=== PATIENT | female | born 1950 | race African-American/Black ===

== ENCOUNTER 2018-08-08 14:57 | Emergency (ER) | payer MEDICARE | END 2018-08-08 16:20 | disposition home or self-care (01) | LOC: ERS 14:57 | DX: S39.012A Strain of muscle, fascia and tendon of lower back, initial encounter (principal); E78.5 Hyperlipidemia, unspecified; Z79.899 Other long term (current) drug therapy; I10 Essential (primary) hypertension; Z87.891 Personal history of nicotine dependence; X50.1XXA Overexertion from prolonged static or awkward postures, initial encounter | CPT/HCPCS: 99283 ==

== ENCOUNTER 2020-09-05 06:51 | Outpatient (CLI) | payer MEDICARE, BC | END 2020-09-05 06:52 | disposition home or self-care (01) | LOC: BICULT 06:51 | PROVIDERS: ATTEND Family Medicine | DX: R14.0 Abdominal distension (gaseous) (principal); K76.0 Fatty (change of) liver, not elsewhere classified; K76.89 Other specified diseases of liver | CPT/HCPCS: 93975 ==

== ENCOUNTER 2022-10-31 14:25 | Emergency (ER) | payer MEDICARE, BC | END 2022-10-31 15:02 | disposition home or self-care (01) | LOC: ERS 14:25 | DX: J06.9 Acute upper respiratory infection, unspecified (principal); E78.00 Pure hypercholesterolemia, unspecified; I10 Essential (primary) hypertension; Z87.891 Personal history of nicotine dependence; Z79.899 Other long term (current) drug therapy | CPT/HCPCS: 99283 ==

== ENCOUNTER 2023-04-20 07:43 | Emergency (ER) | payer BC, MEDICARE ==
[2023-04-20 08:29] LABS: #Monocytes 0.2 thou/uL (0.11-0.59); #Neutrophils 2.2 thou/uL (1.40-6.50); %Basophils 0.2 % (0.0-1.0); %Eosinophils 0.4 % (0.0-10.0); %Monocytes 3.6 % (0.0-10.0); %Neutrophils 40.6 % (42.0-75.0); Hematocrit 39.7 % (36.0-47.0); Hemoglobin 12.9 g/dL (12.0-16.0); Mean Corpuscular HGB CONC 32.5 g/dL (32.0-36.0); Mean Corpuscular Hemoglobin 25.8 pg (27.0-31.0); Mean Corpuscular Volume 79.4 fl (78.0-98.0); Mean Platelet Volume 9.1 fL (7.4-10.4); Platelet Count 310 10x3/uL (130-400); RBC Distribution Width 13.8 % (11.5-14.5); White Blood Cell (WBC) Count 5.4 10x3/uL (4.8-10.8)
[2023-04-20 08:54] LABS: ALT (SGPT) 45 U/L (8-55); AST (SGOT) 40 U/L (5-34); Albumin 4.4 g/dL (3.4-4.8); Alkaline Phosphatase 90 U/L (40-110); Anion Gap 13 mmol/L (10-20); BUN (Urea Nitrogen) 15 mg/dL (9.8-20.1); Bilirubin, Total 0.5 mg/dL (0.2-1.2); Calc. Creatinine Clearance 0 mL/min (70-130); Calcium 9.5 mg/dL (7.8-10.44); Carbon Dioxide 25 mmol/L (23-31); Chloride 103 mmol/L (98-107); Estimated GFR 62; Globulin 4.1 g/dL (2.4-3.5); Glucose 127 mg/dL (80-115); Potassium 2.7 mmol/L (3.5-5.1); Protein, Total 8.5 g/dL (5.8-8.1); Sodium 138 mmol/L (136-145)
[2023-04-20 08:58] LABS: Troponin I Less than 0.010 ng/mL (< 0.028)
[2023-04-20 09:22] LABS: Magnesium 1.7 mg/dL (1.6-2.6)
[2023-04-20] MEDS ORDERED: NS 0.9% w/ 20 MEQ KCL 1,000 ML ONE (09:49)
[2023-04-20] MEDS ORDERED: Potassium Chloride 20 MEQ TAB ONE (09:49)
== END 2023-04-20 12:51 | disposition home or self-care (01) ==
LOC: ERS 07:43
DX: J22 Unspecified acute lower respiratory infection (principal); E87.6 Hypokalemia; E78.00 Pure hypercholesterolemia, unspecified; I10 Essential (primary) hypertension; Z87.891 Personal history of nicotine dependence; Z79.899 Other long term (current) drug therapy
CPT/HCPCS: 36415; 71046; 80053; 83735; 84443; 84484; 85025; 85379; 93005; 96365; 96366; J3480